=== PATIENT | male | born 1955 | race Caucasian/White ===

== ENCOUNTER → 2020-12-22 | Outpatient (CLI) | payer MEDICARE, OTHER ==
[2006-01-01 10:38] VITALS: PULSE 70; TEMP 98.2
[~2020-12-22] MED LIST: ASPI325T6 PO; ASPIRIN 81M81 MG/TA2 PO; BETAPACE 120MG120 MG PO; CELLCEPT 250MG250 MG PO; COLESTID 1GM1 G PO; COMPLETE MULTI1 TAB PO; COUMADIN 5MG5 MG/TAB PO; DULCOLAX STOOL100 MG PO; FERROUS SU325 MG/TAB PO; FOLIC ACID 11 MG/TA1 PO; KLOR-CON SPRIN10 MEQ PO; LOPRESSOR 225 MG/TAB PO; LUNESTA3 MG PO; MOBIC15 MG PO; NORCO 325 MG-51 TAB PO; PREDNISONE 5MG5 MG PO; PREDNISONE10 MG PO; PRILOSEC 20MG20 MG PO; PRISTIQ100 MG PO; PROTONIX 40MG T40 MG PO; RITALIN 20M20 MG/TAB PO; SYNTHROID0.05 MG/TA PO; SYNTHROID0.075 MG/T PO; THIAMINE 1100 MG/TAB PO; TYLENOL 500MG500 MG PO; ULTRAM 50MG TAB50 MG PO; ZOFRAN ODT4 MG PO
== END ==
LOC: COL.RAD 07:51
DX: M25.551 Pain in right hip (principal)
CPT/HCPCS: J3301; Q9967

== ENCOUNTER 2021-01-05 07:25 | Day surgery (SDC) | payer MEDICARE, OTHER ==
[~2021-01-05] VITALS: Ht 195.6 cm; Wt 119.8 kg
[2021-01-05] MEDS ORDERED: KLOR-CON SPRIN10 MEQ PO (07:47)
[2021-01-05] MEDS ORDERED: PRILOSEC 20MG20 MG PO (07:47)
[2021-01-05] MEDS ORDERED: RITALIN 20M20 MG/TAB PO (07:48)
[2021-01-05] MEDS ORDERED: PRISTIQ100 MG PO (07:49)
[2021-01-05] MEDS ORDERED: LUNESTA3 MG PO (07:50)
[2021-01-05] MEDS ORDERED: PREDNISONE 5MG5 MG PO (07:51)
[2021-01-05] MEDS ORDERED: COUMADIN 5MG5 MG/TAB PO (07:54)
[2021-01-05] MEDS ORDERED: LOPRESSOR 225 MG/TAB PO (07:55)
[2021-01-05] MEDS ORDERED: COLESTID 1GM1 G PO (08:06)
[2021-01-05 08:25] VITALS: BP 124/91; PULSE 94; TEMP 97.2
[2021-01-05 09:50] VITALS: BP 119/80; PULSE 73
--- NOTE | 2021-01-05 09:50 | NUR ---
Returns to bay 2 per cart and transfers from cart to recliner with one person assist. Resting in recliner and IV fluids continue to infuse. Denies difficulty swallowing or nausea. Given orange juice and jello. Spouse in room. Call light in reach.
--- NOTE | 2021-01-05 09:55 | NUR ---
Dr. Nails in the room and talks with patient. All questions answered. Tolerating snack.
[2021-01-05 10:05] VITALS: BP 128/89; PULSE 68
--- NOTE | 2021-01-05 10:05 | NUR ---
States that he is ready to go home. Denies any pain or nausea.
--- NOTE | 2021-01-05 10:13 | NUR ---
IV discontinued and site is free of redness or swelling. Patient dresses self.
--- NOTE | 2021-01-05 10:21 | NUR ---
Dismissal instructions given and patient voices understanding of these. Provided office number for any questions or concerns.
--- NOTE | 2021-01-05 10:25 | NUR ---
Patient dismissed to home driven by spouse and taken to the front door per wheelchair and assisted into vehicle by this RN with dismissal instructions in hand.
== END 2021-01-05 10:25 | disposition home or self-care (01) ==
LOC: SDCO 07:25
DX: K29.50 Unspecified chronic gastritis without bleeding (principal); D12.3 Benign neoplasm of transverse colon; D50.0 Iron deficiency anemia secondary to blood loss (chronic); K57.30 Diverticulosis of large intestine without perforation or abscess without bleeding; R19.5 Other fecal abnormalities; M47.817 Spondylosis without myelopathy or radiculopathy, lumbosacral region; M19.90 Unspecified osteoarthritis, unspecified site; G89.29 Other chronic pain; R19.7 Diarrhea, unspecified; K90.9 Intestinal malabsorption, unspecified; I82.409 Acute embolism and thrombosis of unspecified deep veins of unspecified lower extremity; I48.91 Unspecified atrial fibrillation; I10 Essential (primary) hypertension; G47.33 Obstructive sleep apnea (adult) (pediatric); K21.9 Gastro-esophageal reflux disease without esophagitis; E66.01 Morbid (severe) obesity due to excess calories; E03.9 Hypothyroidism, unspecified; F41.9 Anxiety disorder, unspecified; F32.9 Major depressive disorder, single episode, unspecified; Z20.822 Contact with and (suspected) exposure to COVID-19; Z98.84 Bariatric surgery status; Z79.890 Hormone replacement therapy; Z79.899 Other long term (current) drug therapy; Z99.89 Dependence on other enabling machines and devices; Z79.01 Long term (current) use of anticoagulants
CPT/HCPCS: J7120

== ENCOUNTER → 2021-02-22 | Outpatient (CLI) | payer MEDICARE, OTHER ==
[2006-01-01 10:38] VITALS: TEMP 98.2
== END ==
LOC: COL.RAD 14:22
DX: M43.16 Spondylolisthesis, lumbar region (principal)
CPT/HCPCS: J3301

== ENCOUNTER 2021-05-04 23:19 | Inpatient (IN) | payer MEDICARE, OTHER ==
[~2021-05-04] VITALS: Ht 193 cm; Wt 118.4 kg
[~2021-05-04 23:19] MED LIST changes: -ASPI325T6 PO; -ASPIRIN 81M81 MG/TA2 PO; -BETAPACE 120MG120 MG PO; -CELLCEPT 250MG250 MG PO; -COMPLETE MULTI1 TAB PO; -DULCOLAX STOOL100 MG PO; -FERROUS SU325 MG/TAB PO; -FOLIC ACID 11 MG/TA1 PO; -MOBIC15 MG PO; -NORCO 325 MG-51 TAB PO; -PREDNISONE10 MG PO; -PROTONIX 40MG T40 MG PO; -SYNTHROID0.05 MG/TA PO; -SYNTHROID0.075 MG/T PO; -THIAMINE 1100 MG/TAB PO; -TYLENOL 500MG500 MG PO; -ULTRAM 50MG TAB50 MG PO; -ZOFRAN ODT4 MG PO
[2021-05-04 23:52] LABS: BASO % 0.6 % (0.0-2.0); EOS # 0.3 K/mm3 (0.0-0.7); EOS % 4.1 % (0-4.0); GRAN # 4.2 K/mm3 (1.4-6.5); GRAN % 58.9 % (42.2-75.2); HEMATOCRIT 32.3 % (42.0-52.0); HEMOGLOBIN 10.5 g/dl (13.5-18.0); LYMPH # 1.7 K/mm3 (1.2-3.4); LYMPH % 24.3 % (20.0-51.0); MEAN CELL VOLUME 96 fl (80.0-100.0); MEAN CORPUSCULAR HEMOGLOBIN 31 pg (27.0-31.0); MEAN CORPUSCULAR HGB CONC 33 g/dl (33.0-37.0); MEAN PLATELET VOLUME 8.2 fl (7.4-10.4); MONO # 0.8 K/mm3 (0.1-0.6); MONO % 11.4 % (1.7-9.3); PLATELET COUNT 199 K/mm3 (130-400); RED BLOOD COUNT 3.38 M/mm3 (4.20-5.60)
[2021-05-05 00:02] LABS: PARTIAL THROMBOPLASTIN TIME 25.7 SECONDS (26.0-37.0)
[2021-05-05 00:08] LABS: CALCIUM 8.2 mg/dL (8.4-10.2); CREATININE, serum 0.88 mg/dL (0.72-1.25); POTASSIUM 3.7 mmol/L (3.5-4.5)
[2021-05-05] MEDS ORDERED: ASPI325T6 PO (00:38)
[2021-05-05] MEDS ORDERED: MOBIC15 MG PO (00:39)
[2021-05-05] MEDS ORDERED: DULCOLAX STOOL100 MG PO (00:39)
[2021-05-05] MEDS ORDERED: SYNTHROID0.05 MG/TA PO (00:40)
[2021-05-05] MEDS ORDERED: NORCO 325 MG-51 TAB PO (00:40)
[2021-05-05] MEDS ORDERED: ZOFRAN ODT4 MG PO (00:40)
[2021-05-05] MEDS ORDERED: SYNTHROID0.075 MG/T PO (02:47)
[2021-05-05 03:03] VITALS: BP 127/73; PULSE 78; TEMP 98.4
[2021-05-05 06:49] LABS: BASO % 0.5 % (0.0-2.0); EOS # 0.2 K/mm3 (0.0-0.7); EOS % 2.9 % (0-4.0); GRAN # 5.3 K/mm3 (1.4-6.5); GRAN % 69.7 % (42.2-75.2); HEMOGLOBIN 10.3 g/dl (13.5-18.0); LYMPH % 13.3 % (20.0-51.0); MEAN CELL VOLUME 99 fl (80.0-100.0); MEAN CORPUSCULAR HEMOGLOBIN 32 pg (27.0-31.0); MEAN CORPUSCULAR HGB CONC 32 g/dl (33.0-37.0); MEAN PLATELET VOLUME 8.5 fl (7.4-10.4); MONO % 12.7 % (1.7-9.3); PLATELET COUNT 207 K/mm3 (130-400); RED BLOOD COUNT 3.24 M/mm3 (4.20-5.60); REDCELL DISTRIBUTION WIDTH-CV 16.3 % (11.5-14.5)
[2021-05-05 06:50] LABS: HEMATOCRIT 32.1 % (42.0-52.0)
[2021-05-05 07:01] LABS: CREATININE, serum 0.81 mg/dL (0.72-1.25); POTASSIUM 3.8 mmol/L (3.5-4.5)
--- NOTE | 2021-05-05 08:07 | NUR ---
patient is in bed, call light within reach, hearing aides and glasses on at this time. patient rates pain 8/10 PRN given by Primary Nurse Jacky. patient is currently NPO. immobile and on bedrest r/t right hip fx.
[2021-05-05 09:35] VITALS: BP 128/69; PULSE 84; TEMP 98.1
--- NOTE | 2021-05-05 09:55 | NUR ---
SW met with the patient to discuss discharge plan. The patient lives in [place] with his , Grace (ph#[phone]). He reports independence with ADLs and has a cane. He states that he had a knee replacement not too long ago and that he has been receiving outpatient PT at [facility]. The patient's PCP is Dr. Keagan Kern and he receives his medications from [facility]. He reports no difficulties obtaining his meds. The patient does not have a DPOA-HC in EMR, but he states that he does have one completed and that it designates his . He reports that his has a copy of the document. The patient has a femur fracture. Per Ortho, possible surgery on Sunday. SW discussed post-acute rehab upon discharge. The patient reports that he would prefer to return home and resume outpatient PT at [facility]. He states that if he cannot return straight home, he would only prefer [facility]. SW consulted IPR Director, Renea. The patient has a history of alcohol use and drinks 1-2 drinks a day. SW addressed this with the patient. The patient reports no concerns about his drinking and is not interested in any treatment. SW to continue to follow. *Discharge plan: home with outpatient PT vs IPR*
--- NOTE | 2021-05-05 11:58 | NUR ---
METOPROLOL GIVEN PER ORDERS. PT REFUSING HOSPITAL MEDS AFTER TALKING WITH PT HE TOOK METOPOLOL.
[2021-05-05] MEDS ORDERED: CELLCEPT 250MG250 MG PO (12:25)
[2021-05-05] MEDS ORDERED: RITALIN 20M20 MG/TAB PO (12:27)
[2021-05-05 12:40] VITALS: BP 147/87; PULSE 102; TEMP 98.1
[2021-05-05] MEDS ORDERED: PREDNISONE 5MG5 MG PO (12:51)
--- NOTE | 2021-05-05 13:08 | NUR ---
First visit from the grain sacker. No needs right now.
[2021-05-05 15:45] VITALS: BP 121/77; PULSE 125; TEMP 98.3
[2021-05-05 20:04] VITALS: BP 123/63; PULSE 97; TEMP 98.3
--- NOTE | 2021-05-05 21:00 | NUR ---
PT RESTING IN BED. SEE MAR FOR PAIN MEDS GIVEN. CPAP AT HS SET UP AND READY.
[2021-05-06] VITALS (11 sets, daily range): BP systolic 104–156; BP diastolic 54–93; PULSE 70–95; TEMP 97.6–98.3
--- NOTE | 2021-05-06 | NUR ---
NPO AT THIS TIME.
--- NOTE | 2021-05-06 06:13 | NUR ---
PT RESTING WITH CPAP ON THROUGHOUT THE NIGHT. NO DISTRESS.
[2021-05-06 06:19] LABS: BASO % 0.4 % (0.0-2.0); EOS # 0.3 K/mm3 (0.0-0.7); EOS % 3.9 % (0-4.0); GRAN # 4.9 K/mm3 (1.4-6.5); GRAN % 65.9 % (42.2-75.2); LYMPH # 1.2 K/mm3 (1.2-3.4); LYMPH % 15.9 % (20.0-51.0); MEAN CELL VOLUME 96 fl (80.0-100.0); MEAN CORPUSCULAR HGB CONC 33 g/dl (33.0-37.0); MEAN PLATELET VOLUME 8.8 fl (7.4-10.4); MONO % 13.2 % (1.7-9.3); PLATELET COUNT 196 K/mm3 (130-400); REDCELL DISTRIBUTION WIDTH-CV 15.8 % (11.5-14.5)
[2021-05-06 06:27] LABS: HEMATOCRIT 29.6 % (42.0-52.0); HEMOGLOBIN 9.9 g/dl (13.5-18.0); MEAN CORPUSCULAR HEMOGLOBIN 32 pg (27.0-31.0)
[2021-05-06 06:45] LABS: CALCIUM 8.3 mg/dL (8.4-10.2); CREATININE, serum 0.76 mg/dL (0.72-1.25); MAGNESIUM 1.8 mg/dL (1.6-2.6)
--- NOTE | 2021-05-06 07:48 | NUR ---
PATIENT REMAINS ON BEDREST AND NPO STATUS UNTIL SURGERY. PATIENT IS COOPERATIVE WITH CARES. NO PAIN AT THIS TIME.
--- NOTE | 2021-05-06 08:15 | NUR ---
PT IS ALERT AND ORIENTED THIS AM. PT REMAINS ON TELE AND BEDREST STATUS. PT IS NPO FOR SURGERY TODAY. PT REPORTS SOME PAIN AND MEDICATION WAS GIVEN. SHIFT ASSESSMENT COMPLETE AND MORNING MEDICATIONS GIVEN.
--- NOTE | 2021-05-06 13:55 | NUR ---
The patient is to tentatively have surgery today. If the patient is wanting or needing to pursue post-acute rehab upon discharge, Reena with IPR, reports that the soonest they would be able to take the patient would be on Sunday. SW to continue to monitor. *Discharge plan: home with and outpatient PT vs IPR. Will await therapy's recs after surgery*
--- NOTE | 2021-05-06 15:09 | NUR ---
PT OFF THE FLOOR FOR SURGERY
--- NOTE | 2021-05-06 17:32 | NUR ---
PATIENT IS IN SURGERY AND OFF OF MONITOR.
--- NOTE | 2021-05-06 20:24 | NUR ---
PT RETURNED FROM PACU PER BED. DENIES PAIN N/V. AWAKE AND ALERT. ABDUCTION WEDGE IN PLACE. SENSATION AND MOVEMENT IN TOES.
--- NOTE | 2021-05-06 21:19 | NUR ---
SEE MAR FOR PAIN MED GIVEN.
--- NOTE | 2021-05-06 21:50 | NUR ---
PT RESTING IN BED WATCHING BASKETBALL GAME ON PHONE. NO EVIDENCE OF PAIN.
--- NOTE | 2021-05-06 23:29 | NUR ---
PT RESTING WITH CPAP IN PLACE. NO DISTRESS. VSS.
[2021-05-07 01:05] LABS: HEMATOCRIT 23.4 % (42.0-52.0)
[2021-05-07 01:06] LABS: HEMOGLOBIN 7.7 g/dl (13.5-18.0)
--- NOTE | 2021-05-07 01:23 | NUR ---
REPORTED HBG 7.7 TO YANICK MARQUES.
[2021-05-07 04:13] VITALS: BP 100/59; PULSE 78; TEMP 98.5
[2021-05-07 07:09] LABS: BASO % 0.3 % (0.0-2.0); EOS # 0.1 K/mm3 (0.0-0.7); EOS % 1.4 % (0-4.0); GRAN # 6.5 K/mm3 (1.4-6.5); GRAN % 71.8 % (42.2-75.2); LYMPH # 1.2 K/mm3 (1.2-3.4); MEAN CELL VOLUME 99 fl (80.0-100.0); MEAN CORPUSCULAR HGB CONC 33 g/dl (33.0-37.0); MONO # 1.1 K/mm3 (0.1-0.6); MONO % 12.6 % (1.7-9.3); PLATELET COUNT 184 K/mm3 (130-400); RED BLOOD COUNT 2.45 M/mm3 (4.20-5.60); REDCELL DISTRIBUTION WIDTH-CV 15.3 % (11.5-14.5)
[2021-05-07 07:21] LABS: CALCIUM 7.9 mg/dL (8.4-10.2); CREATININE, serum 0.94 mg/dL (0.72-1.25); POTASSIUM 3.8 mmol/L (3.5-4.5)
[2021-05-07 07:30] LABS: HEMATOCRIT 24.3 % (42.0-52.0); MEAN CORPUSCULAR HEMOGLOBIN 33 pg (27.0-31.0)
[2021-05-07 08:09] VITALS: BP 109/60; PULSE 78; TEMP 98
--- NOTE | 2021-05-07 10:29 | NUR ---
PT WORKED WITH THERAPY THIS AM. SPOKE WITH SYSTEM SUPPORT TECHNICIAN ON REFERALS FOR PLACEMENT. PAIN CONTROLLED WITH PO MEDS. IV TORDOL ALSO EFFECTIVE. DRESSING TO RIGHT LEG CDI WITH 50 %WB.
[2021-05-07 11:41] VITALS: BP 135/114; PULSE 79; TEMP 98.5
[2021-05-07 16:31] VITALS: BP 114/60; PULSE 87; TEMP 98.5
[2021-05-07 20:15] VITALS: BP 168/81; PULSE 79; TEMP 98.6
--- NOTE | 2021-05-07 20:16 | NUR ---
ASSISTED UP TO BSC. NO BM. PASSISG GAS EALIER TODAY. VOMITED X2. ABD SOFT BS X4 QUAD. SEE MAR FOR ZOFRAN GIVEN.
--- NOTE | 2021-05-07 22:31 | NUR ---
INT NEEDLE TO RT ARM INFILTRATED.
[2021-05-08 00:39] VITALS: BP 108/60; PULSE 77; TEMP 98.5
[2021-05-08 04:10] VITALS: BP 95/47; PULSE 75; TEMP 99.4
[2021-05-08 06:59] LABS: HEMATOCRIT 21.2 % (42.0-52.0); HEMOGLOBIN 7.1 g/dl (13.5-18.0)
[2021-05-08 08:04] VITALS: BP 103/45; PULSE 74; TEMP 98.3
--- NOTE | 2021-05-08 10:10 | NUR ---
PT RESTING IN BED THIS AM. PT ATE BREAKFAST AND NOW WORKING WITH PT. PLAN ON TRANSFER TO [facility] FOR INC[facility]LES LATER TODAY OR TOMORROW. DRESSING TO RIGHT FEMUR CDI. PAIN WELL CONTROLLED WITH PO PAIN NEDS.
[2021-05-08 12:00] VITALS: BP 106/55; PULSE 76; TEMP 98.1
--- NOTE | 2021-05-08 13:48 | NUR ---
Pt was accepted into [facility]
[2021-05-08] MEDS ORDERED: FERROUS SU325 MG/TAB PO (13:56)
[2021-05-08] MEDS ORDERED: ULTRAM 50MG TAB50 MG PO (13:57)
[2021-05-08] MEDS ORDERED: BETAPACE 120MG120 MG PO (13:57)
[2021-05-08] MEDS ORDERED: TYLENOL 500MG500 MG PO (13:57)
[2021-05-08] MEDS ORDERED: PROTONIX 40MG T40 MG PO (13:58)
[2021-05-08] MEDS ORDERED: FOLIC ACID 11 MG/TA1 PO (13:58)
[2021-05-08] MEDS ORDERED: PREDNISONE10 MG PO (13:58)
[2021-05-08] MEDS ORDERED: COMPLETE MULTI1 TAB PO (13:58)
[2021-05-08] MEDS ORDERED: THIAMINE 1100 MG/TAB PO (13:58)
--- NOTE | 2021-05-08 15:23 | NUR ---
PT ACCEPTED TO [facility] FOR REHAB.
--- NOTE | 2021-05-08 16:32 | NUR ---
TRANSFER TO [facility] RM 336.
--- NOTE | 2021-05-08 16:35 | NUR ---
DRESSING CHANGE COMPLETE, AQUACELS PLACED OVER INCISON CDI WITH SVETA INTACT.
== END 2021-05-08 16:00 | DRG 467 ==
LOC: COL.ER 23:19 → SURG 05-05 00:25
PROVIDERS: Emergency Medicine; Orthopaedic Surgery Sports Medicine; Student in an Organized Health Care Education/Training Program; ADMIT Internal Medicine
PROC: 0QS604Z Reposition Right Upper Femur with Internal Fixation Device, Open Approach (ICD-10-PCS; 2021-05-06)
PROC: 0SRR0JZ Replacement of Right Hip Joint, Femoral Surface with Synthetic Substitute, Open Approach (ICD-10-PCS; principal; 2021-05-06 15:00)
PROC: 0SPR0JZ Removal of Synthetic Substitute from Right Hip Joint, Femoral Surface, Open Approach (ICD-10-PCS; 2021-05-06 15:00)
DX: S72.21XA Displaced subtrochanteric fracture of right femur, initial encounter for closed fracture (principal); M97.01XA Periprosthetic fracture around internal prosthetic right hip joint, initial encounter; D62 Acute posthemorrhagic anemia; I10 Essential (primary) hypertension; I48.91 Unspecified atrial fibrillation; F10.129 Alcohol abuse with intoxication, unspecified; G47.33 Obstructive sleep apnea (adult) (pediatric); E03.9 Hypothyroidism, unspecified; G47.00 Insomnia, unspecified; Y90.7 Blood alcohol level of 200-239 mg/100 ml; Z96.651 Presence of right artificial knee joint; Z96.641 Presence of right artificial hip joint; Z96.612 Presence of left artificial shoulder joint; Z96.611 Presence of right artificial shoulder joint; W01.0XXA Fall on same level from slipping, tripping and stumbling without subsequent striking against object, initial encounter; Y93.89 Activity, other specified; Y92.008 Other place in unspecified non-institutional (private) residence as the place of occurrence of the external cause; Z79.82 Long term (current) use of aspirin; Z79.52 Long term (current) use of systemic steroids; Z23 Encounter for immunization
CPT/HCPCS: 99223-AI; 99232-AI; 99233-AI; 99239; A9284; C1776; J0690; J1170; J1885; J2250; J2270; J2370; J2405; J2704; J3010; J7030; J7120; J7512; L1830; L1846

== ENCOUNTER 2021-05-08 13:45 | Inpatient (IN) | payer MEDICARE, OTHER ==
[~2021-05-08] VITALS: Ht 195.6 cm; Wt 120.7 kg
[~2021-05-08 13:45] MED LIST changes: +ASPI325T6 PO; +CELLCEPT 250MG250 MG PO; +DULCOLAX STOOL100 MG PO; +MOBIC15 MG PO; +NORCO 325 MG-51 TAB PO; +SYNTHROID0.05 MG/TA PO; +SYNTHROID0.075 MG/T PO; +ZOFRAN ODT4 MG PO
[2021-05-08] MEDS ORDERED: FERROUS SU325 MG/TAB PO (13:56)
[2021-05-08] MEDS ORDERED: TYLENOL 500MG500 MG PO (13:57)
[2021-05-08] MEDS ORDERED: ULTRAM 50MG TAB50 MG PO (13:57)
[2021-05-08] MEDS ORDERED: BETAPACE 120MG120 MG PO (13:57)
[2021-05-08] MEDS ORDERED: PROTONIX 40MG T40 MG PO (13:58)
[2021-05-08] MEDS ORDERED: FOLIC ACID 11 MG/TA1 PO (13:58)
[2021-05-08] MEDS ORDERED: COMPLETE MULTI1 TAB PO (13:58)
[2021-05-08] MEDS ORDERED: THIAMINE 1100 MG/TAB PO (13:58)
[2021-05-08] MEDS ORDERED: PREDNISONE10 MG PO (13:58)
[2021-05-08 18:15] VITALS: BP 97/44; PULSE 57; TEMP 98.1
--- NOTE | 2021-05-08 20:27 | NUR ---
ASSISTED AMB IN [place] WITH WALKER. 50%WB RLE. DOROTEO WELL. NO PAIN AT THIS TIME.
[2021-05-09] VITALS (8 sets, daily range): BP systolic 101–125; BP diastolic 57–68; PULSE 71–82; TEMP 97.9–98.5
[2021-05-09 06:45] LABS: HEMATOCRIT 19.3 % (42.0-52.0); HEMOGLOBIN 6.4 g/dl (13.5-18.0)
--- NOTE | 2021-05-09 16:24 | NUR ---
SW met with the patient to complete intake, as the patient is new to [facility]. The patient lives in [place] with his , Grace (ph#[phone]). He reports independence with ADLs and has a cane. He reports that he will need a walker upon discharge and would like to get one ordered through insurance. The patient's PCP is Dr. Keagan Kern and he receives his medications from [facility]. He reports no difficulties obtaining his meds. The patient does not have a DPOA-HC in EMR, but he states that he does have one completed and that he designated his . The patient reports that therapy is going well so far. SW to continue to follow.
--- NOTE | 2021-05-09 19:00 | NUR ---
RECEIVED CHANGE OF SHIFT REPORT FROM DAY SHIFT NURSE.
[2021-05-10 05:37] VITALS: BP 111/61; PULSE 72; TEMP 98
[2021-05-10 07:11] LABS: HEMATOCRIT 21.6 % (42.0-52.0); HEMOGLOBIN 7.2 g/dl (13.5-18.0)
--- NOTE | 2021-05-10 07:15 | NUR ---
CHANGE OF SHIFT REPORT GIVEN TO DAY SHIFT NURSE, JOELLEN CASTILLO.
--- NOTE | 2021-05-10 14:03 | NUR ---
Several visit attempts; Talent Buyer left prayer card that let patient know that spiritual care is available at our hospital and Talent Buyer's name and number.
[2021-05-10 16:57] VITALS: BP 127/72; PULSE 72; TEMP 98.1
--- NOTE | 2021-05-10 18:26 | NUR ---
PT DENIES ANY NEEDS AT THIS TIME DRESSING TO RIGHT HIP CHANGED SITE CLEANED WITH SALINE AQUACELL APPLIED
--- NOTE | 2021-05-10 19:01 | NUR ---
RECEIVED CHANGE OF SHIFT REPORT FROM DAY SHIFT NURSE. PATIENT UP IN CHAIR WITH VISITOR PRESENT IN ROOM DURING REPORT. CALL LIGHT WITHIN REACH.
--- NOTE | 2021-05-11 01:15 | NUR ---
PATIENT SLEEPING, DOES NOT WAKE WHEN DOOR TO ROOM IS OPENED BY NURSING DURING ROUNDS. BREATHING NONLABORED AND EVEN. CPAP ON. CALL LIGHT WITHIN REACH.
[2021-05-11 05:35] VITALS: BP 124/69; PULSE 77; TEMP 98.6
--- NOTE | 2021-05-11 07:12 | NUR ---
Patient is sleeping in bed. Call light and bedside table are within reach. Will continue to monitor patient throughout shift.
--- NOTE | 2021-05-11 07:33 | NUR ---
CHANGE OF SHIFT REPORT GIVEN TO DAY SHIFT NURSE, VANESSA CASTILLO.
--- NOTE | 2021-05-11 15:57 | NUR ---
GLENN met with the patient to present and review the [facility] Team Conference Note. The team has set a discharge date for this Sunday, 05/13, and recommend a walker and home health PT/OT. The patient is in agreement to the plan and with getting the FWW from [facility]. GLENN provided the patient's with Medicare.[employer]'s list of home health agencies that serve [place]. The patient would like some time to look over the list. SW to follow up with the patient tomorrow on preference.
[2021-05-11 17:57] VITALS: BP 122/54; PULSE 54; TEMP 98.4
--- NOTE | 2021-05-11 19:50 | NUR ---
PT RESTING IN RECLINER. MOD I IN ROOM. DECLINED WALK IN HALLS TONIGHT. NO NEEDS AT THIS TIME.
[2021-05-12 05:06] VITALS: BP 102/64; PULSE 71; TEMP 98.2
--- NOTE | 2021-05-12 06:50 | NUR ---
Report received from JONATHAN Lagos. Patient is sleeping in bed. Call light and bedside table are within reach. Will continue to monitor patient throughout shift.
--- NOTE | 2021-05-12 09:36 | NUR ---
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 offered God's blessings for continued healing for Myles.
--- NOTE | 2021-05-12 11:02 | NUR ---
GLENN faxed and emailed the FWW order to Sheree at [facility].
--- NOTE | 2021-05-12 14:08 | NUR ---
Admission QIM scores were reviewed by the team. Code of 4 chosen for oral hygiene was determined by team discussion to be the most usual performance before interventions for this patient during the assessment period. Code of 4 chosen for toilet hygiene was determined by team discussion to be the most usual performance before interventions for this patient during the assessment period. Code of 3 chosen for lower body dressing was determined by team discussion to be the most usual performance before interventions for this patient during the assessment period. Code of 4 chosen for rolling left to right was determined by team discussion to be the most usual performance before interventions for this patient during the assessment period. Code of 3 for sit to lying was determined by team discussion to be the most usual performance before interventions for this patient during the assessment period. Code of 4 was chosen for lying to sitting determined by team discussion to be the most usual performance before interventions for this patient during the assessment period. Code of 4 chosen for sit to stand was determined by team discussion to be the most usual performance before interventions for this patient during the assessment period. Code of 4 chosen for chair to bed transfer was determined by team discussion to be the most usual performance before interventions for this patient during the assessment period.
[2021-05-12] MEDS ORDERED: FERROUS SU325 MG/TAB PO (15:20)
[2021-05-12] MEDS ORDERED: BETAPACE 120MG120 MG PO (15:22)
[2021-05-12] MEDS ORDERED: FOLIC ACID 11 MG/TA1 PO (15:27)
[2021-05-12] MEDS ORDERED: COMPLETE MULTI1 TAB PO (15:27)
[2021-05-12] MEDS ORDERED: THIAMINE 1100 MG/TAB PO (15:27)
--- NOTE | 2021-05-12 15:50 | NUR ---
GLENN met with the patient to follow up on preference for home health agency. The patient reports that after talking to his , he would prefer to do outpatient PT. He reports that he already has outpatient PT set up at [facility] and his first appointment is on Sunday. GLENN notified ST. OT is not recommending continued outpatient OT upon discharge. The outpatient PT was approved.
[2021-05-12 16:06] LABS: HEMOGLOBIN 8.8 g/dl (13.5-18.0)
[2021-05-12] MEDS ORDERED: PREDNISONE10 MG PO (16:27)
[2021-05-12 18:04] VITALS: BP 109/66; PULSE 85; TEMP 98
--- NOTE | 2021-05-12 19:59 | NUR ---
SITTING IN RECLINER. WATCHING SPORTS. NO NEEDS AT THIS TIME. SMALL AMT OLD DRAINAGE ON AQUACEL RICHARD.
--- NOTE | 2021-05-13 00:05 | NUR ---
PT HAD AMBIEN EARLIER. HAS CPAP ON AT THIS TIME. RESTING QUIETLY.
[2021-05-13 04:42] VITALS: BP 103/64; PULSE 73; TEMP 98.2
--- NOTE | 2021-05-13 07:17 | NUR ---
REPORT RECIEVED. PT RESTING IN BED. NO SIGNS OR SYMPTOMS OF DISTRESS. NO COMPLAINTS OF PAIN OR NAUSEA. CALL LIGHT WITHIN REACH
[2021-05-13 07:47] LABS: HEMATOCRIT 23.9 % (42.0-52.0); HEMOGLOBIN 7.9 g/dl (13.5-18.0)
[2021-05-13] MEDS ORDERED: ULTRAM 50MG TAB50 MG PO (08:21)
[2021-05-13] MEDS ORDERED: ASPIRIN 81M81 MG/TA2 PO (08:21)
--- NOTE | 2021-05-13 09:23 | NUR ---
PT ASSESSED. CURRENTLY IN RECLINER WITH FACE COVERED WITH PILLOW. NO SIGNS OF DISTRESS. NO COMPLAINTS OF PAIN OR DYSPNEA. CALL LIGHT WITHIN REACH
--- NOTE | 2021-05-13 10:12 | NUR ---
GLENN contacted Sheree at [facility] to follow up on the walker. Sheree reports that they will be delivering the FWW to the patient's room before noon today. The patient is to discharge today by home with his today, 05/13, with outpatient PT at [facility]. GLENN met with the patient and presented and read the IM form outloud to him. The patient verblized understanding and signed the form. He declined a copy. No additional needs at this time.
--- NOTE | 2021-05-13 12:48 | NUR ---
PT DISCHARGED. ARRIVED TO TRANSPORT PT HOME. DISCHARGE PACKET GIVEN AND DOCUMENTS SIGNED. ALL QUESTIONS ANSWERED.
--- NOTE | 2021-05-13 14:46 | NUR ---
Discharge QIM scores were reviewed by the team. Code of 6 chosen for toilet transfers was determined by team discussion to be the most usual performance for this patient during the assessment period. Code of 6 chosen for showering determined by team discussion to be the most usual performance for this patient during the assessment period. Code of 4 chosen for footwear determined by team discussion to be the most usual performance for this patient during the assessment period. Code of 6 chosen for sit to stand transfers was determined by team discussion to be the most usual performance for this patient during the assessment period. Code of 6 chosen for chair to bed transfer on/taking off footwear was determined by team discussion to be the most usual performance for this patient during the assessment period. Code of 6 chosen for car transfer on side of bed was determined by team discussion to be the most usual performance for this patient during the assessment period. Code of 6 for walking 10 feet was determined by team discussion to be the most usual performance for this patient during the assessment period. Code of 6 for walking 50 feet was determined by team discussion to be the most usual performance for this patient during the assessment period. Code of 6 chosen for walking 150 feet was determined by team discussion to be the most usual performance for this patient during the assessment period. Code of 6 chosen for walking 10 feet on uneven surfaces was determined by team discussion to be the most usual performance for this patient during the assessment period.
== END 2021-05-13 12:49 | disposition home or self-care (01) | DRG 560 ==
PROVIDERS: Physician Assistant; ADMIT Internal Medicine
DX: S72.301D Unspecified fracture of shaft of right femur, subsequent encounter for closed fracture with routine healing (principal); D62 Acute posthemorrhagic anemia; E27.40 Unspecified adrenocortical insufficiency; M97.01XD Periprosthetic fracture around internal prosthetic right hip joint, subsequent encounter; I48.91 Unspecified atrial fibrillation; G47.33 Obstructive sleep apnea (adult) (pediatric); I10 Essential (primary) hypertension; E03.9 Hypothyroidism, unspecified; F32.A Depression, unspecified; F10.229 Alcohol dependence with intoxication, unspecified; G47.00 Insomnia, unspecified; R26.89 Other abnormalities of gait and mobility; Z73.6 Limitation of activities due to disability; Z98.84 Bariatric surgery status; Z79.899 Other long term (current) drug therapy; Y90.7 Blood alcohol level of 200-239 mg/100 ml; Y92.009 Unspecified place in unspecified non-institutional (private) residence as the place of occurrence of the external cause; W01.0XXD Fall on same level from slipping, tripping and stumbling without subsequent striking against object, subsequent encounter; Z79.82 Long term (current) use of aspirin; Z79.891 Long term (current) use of opiate analgesic; Z79.52 Long term (current) use of systemic steroids; Z96.651 Presence of right artificial knee joint; Z96.641 Presence of right artificial hip joint; Z96.612 Presence of left artificial shoulder joint; Z96.611 Presence of right artificial shoulder joint; Z88.8 Allergy status to other drugs, medicaments and biological substances; Z88.0 Allergy status to penicillin
CPT/HCPCS: 99222-AI; 99232-AI; 99239; J7512; P9016

== ENCOUNTER → 2021-07-22 | Outpatient (CLI) | payer MEDICARE, OTHER ==
[~2021-07-22] MED LIST changes: +ASPIRIN 81M81 MG/TA2 PO; +BETAPACE 120MG120 MG PO; +COMPLETE MULTI1 TAB PO; +FERROUS SU325 MG/TAB PO; +FOLIC ACID 11 MG/TA1 PO; +PREDNISONE10 MG PO; +PROTONIX 40MG T40 MG PO; +THIAMINE 1100 MG/TAB PO; +TYLENOL 500MG500 MG PO; +ULTRAM 50MG TAB50 MG PO
== END ==
LOC: COL.RAD 09:21
DX: Z01.812 Encounter for preprocedural laboratory examination (principal); M48.02 Spinal stenosis, cervical region; M43.12 Spondylolisthesis, cervical region; M54.12 Radiculopathy, cervical region
CPT/HCPCS: Q9967

== ENCOUNTER → 2021-08-22 | Outpatient (CLI) | payer MEDICARE, OTHER | LOC: COL.RAD 10:12 | DX: M47.26 Other spondylosis with radiculopathy, lumbar region (principal); M47.27 Other spondylosis with radiculopathy, lumbosacral region; M51.16 Intervertebral disc disorders with radiculopathy, lumbar region; M51.17 Intervertebral disc disorders with radiculopathy, lumbosacral region; M48.07 Spinal stenosis, lumbosacral region; Z98.890 Other specified postprocedural states | CPT/HCPCS: A9575 ==

== ENCOUNTER → 2021-09-09 | Outpatient (CLI) | payer MEDICARE, OTHER | LOC: COL.RAD 10:55 | DX: M97.01XD Periprosthetic fracture around internal prosthetic right hip joint, subsequent encounter (principal); T81.31XA Disruption of external operation (surgical) wound, not elsewhere classified, initial encounter; Z96.641 Presence of right artificial hip joint ==

== ENCOUNTER 2022-01-30 13:38 | Emergency (ER) | payer MEDICARE, OTHER ==
[~2022-01-30] VITALS: Ht 195.6 cm; Wt 111.4 kg
[~2022-01-30 13:38] MED LIST changes: +BACTRIM DS 8001 TAB PO; +PERCOCET 325 MG1 TA2 PO
[2022-01-30 14:00] VITALS: TEMP 97.7
[2022-01-30 14:27] LABS: COLLECTION METHOD CLEAN CATCH
[2022-01-30 14:29] LABS: BASO % 0.4 % (0.0-2.0); EOS # 0.3 K/mm3 (0.0-0.7); EOS % 6.2 % (0.0-4.0); GRAN # 3.3 K/mm3 (1.4-6.5); GRAN % 64.7 % (42.2-75.2); HEMATOCRIT 38.3 % (42.0-52.0); HEMOGLOBIN 12.2 g/dl (13.5-18.0); LYMPH # 0.8 K/mm3 (1.2-3.4); LYMPH % 14.6 % (20.0-51.0); MEAN CELL VOLUME 88 fl (80.0-100.0); MEAN CORPUSCULAR HEMOGLOBIN 28 pg (27-31); MEAN CORPUSCULAR HGB CONC 32 g/dl (33.0-37.0); MEAN PLATELET VOLUME 8.6 fl (7.4-10.4); MONO # 0.7 K/mm3 (0.1-0.6); MONO % 13.3 % (1.7-9.3); PLATELET COUNT 163 K/mm3 (130-400); RED BLOOD COUNT 4.34 M/mm3 (4.20-5.60); REDCELL DISTRIBUTION WIDTH-CV 15.7 % (11.5-14.5)
[2022-01-30] MEDS ORDERED: LOPRESSOR 550 MG/TAB PO (14:41)
[2022-01-30] MEDS ORDERED: RIFADIN300 MG (14:42)
[2022-01-30] MEDS ORDERED: CIPRO750 MG PO (14:42)
[2022-01-30 14:43] LABS: ALBUMIN 3.4 gm/dL (3.4-4.8); BILIRUBIN,TOTAL 0.3 mg/dL (0.2-1.2); CALCIUM 8.6 mg/dL (8.4-10.2); CREATININE, serum 0.9 mg/dL (0.72-1.25); POTASSIUM 3.4 mmol/L (3.5-4.5); TOTAL PROTEIN 5.8 gm/dL (6.2-8.1)
[2022-01-30] MEDS ORDERED: PRILOTC (14:44)
[2022-01-30] MEDS ORDERED: NORCO 325 MG-51 TAB PO (14:44)
[2022-01-30 14:49] LABS: PH 6 (5-8); URINE APPEARANCE Clear (CLEAR/HAZY); URINE BLOOD Negative (NEGATIVE); URINE COLOR Yellow (YELLOW); URINE GLUCOSE Negative (NEGATIVE); URINE KETONE Negative (NEGATIVE); URINE NITRATE Negative (NEGATIVE); URINE PROTEIN(semi-quant) Negative (NEGATIVE); URINE UROBILINOGEN Negative (NEGATIVE)
[2022-01-30 14:51] LABS: SQUAMOUS EPITHELIAL None Seen /hpf (0-10); URINE BACTERIA None Seen /hpf (NONE SEEN); URINE RBC 0-2 /hpf (0-2)
[2022-01-30] MEDS ORDERED: VALTREX1 GM PO (15:01)
[2022-01-30 15:06] VITALS: BP 123/75; PULSE 77
[2022-01-30] MEDS ORDERED: NEURONTIN100 MG/CAP PO (15:06)
== END 2022-01-30 15:24 | disposition home or self-care (01) ==
LOC: COL.ER 13:38
PROVIDERS: Emergency Medicine
DX: B02.9 Zoster without complications (principal); M54.50 Low back pain, unspecified
CPT/HCPCS: J2270; J2405; J7030

== ENCOUNTER → 2022-08-24 | Outpatient (CLI) | payer MEDICARE, OTHER ==
[~2022-08-24] MED LIST changes: +CIPRO750 MG PO; +LOPRESSOR 550 MG/TAB PO; +NEURONTIN100 MG/CAP PO; +PRILOTC; +RIFADIN300 MG; +VALTREX1 GM PO
== END ==
LOC: COL.RAD 11:24
DX: M75.122 Complete rotator cuff tear or rupture of left shoulder, not specified as traumatic (principal); Z96.612 Presence of left artificial shoulder joint

== ENCOUNTER → 2022-09-21 | Outpatient (CLI) | payer MEDICARE, OTHER | LOC: COL.RAD 07:30 | DX: M47.27 Other spondylosis with radiculopathy, lumbosacral region (principal); M48.07 Spinal stenosis, lumbosacral region; M51.17 Intervertebral disc disorders with radiculopathy, lumbosacral region ==

== ENCOUNTER 2023-09-06 17:49 | Emergency (ER) | payer MEDICARE, OTHER ==
[~2023-09-06] VITALS: Ht 195.6 cm; Wt 116.8 kg
[2023-09-06 17:58] VITALS: TEMP 98
[2023-09-06 18:22] LABS: HEMOGLOBIN 12.3 g/dl (13.5-18.0); MEAN CELL VOLUME 99 fl (80.0-100.0); MEAN CORPUSCULAR HEMOGLOBIN 33 pg (27-31); MEAN CORPUSCULAR HGB CONC 34 g/dl (33.0-37.0); MEAN PLATELET VOLUME 8.7 fl (7.4-10.4); PLATELET COUNT 140 K/mm3 (130-400); RED BLOOD COUNT 3.68 M/mm3 (4.20-5.60); REDCELL DISTRIBUTION WIDTH-CV 14.6 % (11.5-14.5)
[2023-09-06 18:44] LABS: ALBUMIN 3.2 gm/dL (3.4-4.8); BILIRUBIN,TOTAL 0.7 mg/dL (0.2-1.2); CALCIUM 8.7 mg/dL (8.4-10.2); CREATININE, serum 0.9 mg/dL (0.72-1.25); HEMATOCRIT 36.4 % (42.0-52.0); POTASSIUM 3.8 mmol/L (3.5-4.5)
[2023-09-06 19:17] LABS: BAND 1 % (0-10); LYMPHOCYTE 16 % (20.0-51.0); NEUTROPHILS 75 % (42.0-75.2)
[2023-09-06 20:51] VITALS: BP 120/82; PULSE 78
[2023-09-07 16:15] LABS: PATHOLOGY DIFF REVIEW OK
== END 2023-09-06 20:51 | disposition home or self-care (01) ==
LOC: COL.ER 17:49
PROVIDERS: Family Medicine
DX: H49.22 Sixth [abducent] nerve palsy, left eye (principal); M25.421 Effusion, right elbow; I48.91 Unspecified atrial fibrillation; Z79.01 Long term (current) use of anticoagulants

== ENCOUNTER 2023-12-22 21:25 | Inpatient (IN) | payer MEDICARE, OTHER ==
[~2023-12-22] VITALS: Ht 195.6 cm; Wt 111.4 kg
[2023-12-22] MEDS ORDERED: AMBIEN 10MG10 MG PO (21:42)
[2023-12-22] MEDS ORDERED: FLOMAX 0.40.4 MG/CAP PO (21:43)
[2023-12-22] MEDS ORDERED: TAMBOCOR50 MG PO (21:44)
[2023-12-22] MEDS ORDERED: CARDIZEM CD 12120 MG PO (21:44)
[2023-12-22] MEDS ORDERED: PLAVIX 75MG TAB75 MG PO (21:45)
[2023-12-22] MEDS ORDERED: RITALIN 20M20 MG/TAB PO (21:46)
[2023-12-22] MEDS ORDERED: COLACE 100100 MG/CAP PO (21:57)
[2023-12-22] MEDS ORDERED: SYNTHROID0.075 MG/T PO (21:58)
[2023-12-22] MEDS ORDERED: MILLIPRED5 MG PO (22:00)
[2023-12-22 22:01] LABS: BASO % 0.4 % (0.0-2.0); EOS % 0.6 % (0.0-4.0); GRAN # 5.1 K/mm3 (1.4-6.5); GRAN % 71.1 % (42.2-75.2); HEMOGLOBIN 11.7 g/dl (13.5-18.0); LYMPH # 1.2 K/mm3 (1.2-3.4); LYMPH % 16.2 % (20.0-51.0); MEAN CELL VOLUME 97 fl (80.0-100.0); MEAN CORPUSCULAR HEMOGLOBIN 32 pg (27-31); MEAN CORPUSCULAR HGB CONC 33 g/dl (33.0-37.0); MEAN PLATELET VOLUME 8.6 fl (7.4-10.4); MONO # 0.8 K/mm3 (0.1-0.6); MONO % 10.7 % (1.7-9.3); PLATELET COUNT 195 K/mm3 (130-400); RED BLOOD COUNT 3.68 M/mm3 (4.20-5.60); REDCELL DISTRIBUTION WIDTH-CV 12.8 % (11.5-14.5)
[2023-12-22 22:03] LABS: HEMATOCRIT 35.7 % (42.0-52.0)
[2023-12-22 22:05] LABS: PARTIAL THROMBOPLASTIN TIME 24.1 SECONDS (26.0-37.0)
[2023-12-22 22:09] LABS: ALANINE AMINOTRANSFERASE 14 U/L (0-55); ALBUMIN 3.8 g/dL (3.4-4.8); ALKALINE PHOSPHATASE 94 U/L (40-150); ANION GAP 11 mmol/L (7-16); AST,SGOT 15 U/L (5-34); BILIRUBIN,TOTAL 1.2 mg/dL (0.2-1.2); BLOOD UREA NITROGEN 20 mg/dL (8-26); CALCIUM 8.7 mg/dL (8.4-10.2); CHLORIDE 106 mEq/L (98-107); CREATININE, serum 0.91 mg/dL (0.72-1.25); GLUCOSE 102 mg/dL (70-99); POTASSIUM 3.9 mEq/L (3.5-4.5); SODIUM 140 mEq/L (136-145); TOTAL PROTEIN 6.5 g/dl (6.2-8.1)
[2023-12-22 22:16] LABS: TROPONIN-I < 0.010 ng/mL (0.00-0.033)
[2023-12-22] MEDS ORDERED: LORazepam 2 MG/ML 1 ML VIAL IV ONE (23:15)
[2023-12-22] MEDS ORDERED: Iohexol 350 - 100 ML VIAL IV ONE (23:39)
[2023-12-22] MEDS ORDERED: NS IV SCH (23:39)
[2023-12-23] VITALS (9 sets, daily range): BP systolic 126–164; BP diastolic 78–116; PULSE 70–79; TEMP 98–99
[2023-12-23] MEDS ORDERED: Ondansetron 4 MG/2 ML VIAL IV ONE (00:30)
[2023-12-23 00:40] LABS: COLLECTION METHOD CLEAN CATCH
[2023-12-23 00:55] LABS: PH 8.5 (5.0-8.5); URINE APPEARANCE CLEAR (CLEAR/HAZY); URINE BLOOD 1+ (NEGATIVE); URINE COLOR YELLOW (YELLOW); URINE GLUCOSE NEGATIVE (NEGATIVE); URINE KETONE TRACE (NEGATIVE); URINE NITRATE NEGATIVE (NEGATIVE); URINE PROTEIN(semi-quant) NEGATIVE (NEGATIVE); URINE UROBILINOGEN 0.2 E.U/dL (0.2-1.0)
[2023-12-23 01:13] LABS: ALCOHOL(ethanol),MEDICAL < 10 mg/dL (0-10)
[2023-12-23] MEDS ORDERED: Docusate Sodium 100 MG CAP PO PRN ×2 (01:30→01:45)
[2023-12-23 01:41] LABS: TRICYCLIC ANTIDEPRESS URINE NEGATIVE (NEGATIVE)
[2023-12-23] MEDS ORDERED: Polyethylene Glycol 3350 17 GM PDS PO PRN (01:45)
[2023-12-23] MEDS ORDERED: traZODone 50 MG TAB PO PRN (01:45)
[2023-12-23] MEDS ORDERED: cloNIDine 0.1 MG TAB PO PRN (01:45)
[2023-12-23] MEDS ORDERED: Gabapentin 300 MG CAP PO SCH (01:45)
[2023-12-23] MEDS ORDERED: Acetaminophen 325 MG TAB PO PRN (01:45)
[2023-12-23] MEDS ORDERED: hydrOXYzine HCl 25 MG TAB PO PRN (01:45)
[2023-12-23] MEDS ORDERED: Ondansetron 4 MG/2 ML VIAL IV PRN (01:45)
[2023-12-23] MEDS ORDERED: Dicyclomine 10 MG CAP PO PRN (01:45)
[2023-12-23] MEDS ORDERED: LR 1,000 ML IV SCH (01:45)
--- NOTE | 2023-12-23 01:45 | NUR ---
Report recieved from JONATHAN San. All questions answered at this time.
--- NOTE | 2023-12-23 02:10 | NUR ---
Patient arrived to room 344 at this time with personal belongings. Patient transfered over to bed with minimal assisstance scooting from one bed to the other. Patient is A&Ox4 but speech is slurred at times. Patient is unable to keep eyes open very long but will open them to speech. Assessment complete. Pupils are constricted. Patient has mulitple wounds, see skin assessment note. Completed med rec to best ability. IV in right AC flushes easily without complications. Call light and personal items in reach. Bed in low position and bed alarm on.
[2023-12-23 02:50] LABS: CHOLESTEROL RISK RATIO 3.2
--- NOTE | 2023-12-23 05:39 | NUR ---
Skin Assessment Left great toe: 2 blisters- one open and one intact Left lat. ankle: wound- covered with blue foam and skin tear (from wound clinic) Left ojeda: skin tear- dressing Right medial ojeda: skin tear- dressing Right posterior ankle: skin tear- dressing Right mid calf: skin tear- dressing Rigth hip: scar- intact, hip replacement Lower back: 2 scars- intact, back surgrey Generalized: bruising, scattered States he goes to the wound clinic and sees Abida.
[2023-12-23] MEDS ORDERED: Metoprolol Tartrate 50 MG TAB PO SCH (09:00)
[2023-12-23] MEDS ORDERED: Multivitamin TAB PO SCH (09:00)
[2023-12-23] MEDS ORDERED: Clopidogrel 75 MG TAB PO SCH (09:00)
[2023-12-23] MEDS ORDERED: predniSONE 10 MG TAB PO SCH (09:00)
[2023-12-23] MEDS ORDERED: dilTIAZem CD (24-HR) 120 MG CAP PO SCH (09:00)
--- NOTE | 2023-12-23 10:30 | NUR ---
PT RESTING IN BED, PRETTY DROWSY, BUT WAKES TO ANSWER QUESTIONS AND TAKE MEDS. PT IS ORIENTEDX4. RATES PAIN 6/10 IN THE RIGHT LEG. PT HAS GENERALIZED BRUSIING ALL OVER BODY. PT STATES THAT HES HAD MULTIPLE FALLS RECENTLY. SCORING LOW ON COWS ASSESSEMENT.
--- NOTE | 2023-12-23 10:37 | NUR ---
SW presented to complete intake with patient and was provided by nurse that it would be beneficial to contact family to obtain information. SW called spouse/DPOA/HC Grace Mccormack [phone]. Spouse provides jeremiah patient primarily utilizes and electric wheel chair and does not walk very well, does not utilize home health services at this time. PCP is Dr. Hillman, and pharmacy utilized is [facility]. Spouse provides plan is for patient to return home upon discharge, but open to any assistance needed when transfer time comes. SW will continue to follow. Discharge plan: home
--- NOTE | 2023-12-23 14:04 | NUR ---
PT STATED "I FEEL LIKE I AM STARTING TO GO CRAZY LIKE I DID LAST NIGHT". GAVE ATARAX
[2023-12-23] MEDS ORDERED: Atorvastatin 40 MG TAB PO SCH (21:00)
--- NOTE | 2023-12-23 23:09 | NUR ---
PT ALERT AND OIRENTED, VSS. RESTING IN BED COMFORTABLY, ABLE TO USE THE URINAL INDEPENDANTLY. REQUESTING MED FOR ANXIETY SO THAT " HE STAYS ON TOP OF IT". ANIETY MED GIVEN AND PT IS RESTING IN BED. DENIES FURTHER NEED. CALL LIGHT WITHIN REACH, BED ALARM ENGAGED.
[2023-12-24] VITALS (13 sets, daily range): BP systolic 100–125; BP diastolic 63–80; PULSE 72–94; TEMP 97.6–99.7
[2023-12-24 05:35] LABS: BASO % 0.4 % (0.0-2.0); EOS # 0.1 K/mm3 (0.0-0.7); EOS % 0.9 % (0.0-4.0); GRAN # 4.8 K/mm3 (1.4-6.5); GRAN % 70.8 % (42.2-75.2); HEMOGLOBIN 11.2 g/dl (13.5-18.0); LYMPH # 0.9 K/mm3 (1.2-3.4); LYMPH % 13.7 % (20.0-51.0); MEAN CELL VOLUME 98 fl (80.0-100.0); MEAN CORPUSCULAR HEMOGLOBIN 33 pg (27-31); MEAN CORPUSCULAR HGB CONC 33 g/dl (33.0-37.0); MEAN PLATELET VOLUME 8.3 fl (7.4-10.4); MONO # 0.9 K/mm3 (0.1-0.6); MONO % 13.5 % (1.7-9.3); PLATELET COUNT 165 K/mm3 (130-400); RED BLOOD COUNT 3.41 M/mm3 (4.20-5.60)
[2023-12-24 05:41] LABS: HEMATOCRIT 33.5 % (42.0-52.0)
[2023-12-24 06:00] LABS: CALCIUM 8.3 mg/dL (8.4-10.2); CREATININE, serum 0.82 mg/dL (0.72-1.25); POTASSIUM 3.8 mEq/L (3.5-4.5)
--- NOTE | 2023-12-24 06:45 | NUR ---
Pt laying in bed. Responsive to voice after multiple attempts. Pt denies needs at this time. Call light in reach. Bed alarm on.
--- NOTE | 2023-12-24 08:14 | NUR ---
Pt laying in bed. A&Ox3. VSS. S1S2 on tele. Clear lungs on RA. ABD round, soft, non-tender with audible bowel sounds. Palpable pulses in all extremities with 5/5 strength. IV in R AC is patent with LR running at 75 cc/hr. Multiple skin issues: L Great Toe - x2 blisters - 1 open, 1 intact L 2nd Toe - x1 blister - intact L Lateral Ankle - ulcer - mepilex pad L anterior lower leg - skin tear - mepilex pad R anterior, medial lower leg - skin tear - mepilex pad R posterior ankle - skin tear - mepilex pad R posterior lower leg - skin tear - mepilex pad BLE - generalized ecchymosis R lower back/flank - ecchymosis LLQ - ecchymosis (large) R hip - scar from previous surgery Back - multiple scars due to spinal/back surgiers Bilateral heels - deep tissue injury Bilateral arms - ecchymosis Pt declines anxiety, nausea, vomitting, headache. No further needs. Call light in reach and bed alarm on.
--- NOTE | 2023-12-24 08:27 | NUR ---
Physical Therapy attempted to work with Pt. Unable to sit Pt at side of bed due to Pt becoming lightheaded and swaying back and forth. BPs as follows: Supine: 120/78 Sittin/51 PT elected to return at a different time to work with Pt.
--- NOTE | 2023-12-24 09:49 | NUR ---
Confirmed with Pt's son. Morphine pump is MRI safe. Pump will turn off automatically and will turn back on after procedure. Nothing needs to be done. No revisions since last MRI in April 2023.
[2023-12-24] MEDS ORDERED: Patient's Own Medication Item IT SCH (10:00)
[2023-12-24] MEDS ORDERED: KLOR-CON M2020 MEQ PO (10:15)
--- NOTE | 2023-12-24 10:55 | NUR ---
Pt off floor for MRI.
--- NOTE | 2023-12-24 11:33 | NUR ---
Pt returned from MRI. Requesting Tylenol for pain due to movement. Call light in reach and bed alarm on.
--- NOTE | 2023-12-24 19:27 | NUR ---
report received from remy mcgraw. pt resting in bed with eyes closed. pt responsive to voice. pt denies pain. fall precautions in place. call light in reach. all needs met at this time.
--- NOTE | 2023-12-24 22:16 | NUR ---
shift assessment complete, see documentation. pt tolerated hs meds well. pt denies pain. pt noted to have many skin issues. pt alert and oriented x3 during assessment. no confusion noted. fall precautions in place. call light in reach. all needs met at this time.
[2023-12-25] VITALS (12 sets, daily range): BP systolic 92–110; BP diastolic 60–78; PULSE 82–109; TEMP 98.1–99.3
--- NOTE | 2023-12-25 05:54 | NUR ---
pt slept on and off through the night. pt had very minimal confusion through the night. pt continues using urinal without issue. pt denies pain. ivf continue without issue. fall precautions in place. call light in reach.
[2023-12-25 06:51] LABS: BASO % 0.7 % (0.0-2.0); EOS # 0.1 K/mm3 (0.0-0.7); EOS % 2.5 % (0.0-4.0); GRAN # 3.2 K/mm3 (1.4-6.5); GRAN % 57.5 % (42.2-75.2); HEMOGLOBIN 11.5 g/dl (13.5-18.0); LYMPH # 1.3 K/mm3 (1.2-3.4); LYMPH % 23.7 % (20.0-51.0); MEAN CELL VOLUME 97 fl (80.0-100.0); MEAN CORPUSCULAR HEMOGLOBIN 32 pg (27-31); MEAN CORPUSCULAR HGB CONC 33 g/dl (33.0-37.0); MEAN PLATELET VOLUME 8.6 fl (7.4-10.4); MONO # 0.8 K/mm3 (0.1-0.6); MONO % 14.7 % (1.7-9.3); PLATELET COUNT 182 K/mm3 (130-400); RED BLOOD COUNT 3.55 M/mm3 (4.20-5.60); REDCELL DISTRIBUTION WIDTH-CV 12.9 % (11.5-14.5)
[2023-12-25 07:04] LABS: HEMATOCRIT 34.4 % (42.0-52.0)
[2023-12-25 07:05] LABS: CALCIUM 8.4 mg/dL (8.4-10.2); CREATININE, serum 0.86 mg/dL (0.72-1.25); POTASSIUM 3.8 mEq/L (3.5-4.5)
--- NOTE | 2023-12-25 07:05 | NUR ---
Pt sleeping in bed. Call light in reach. Bed alarm on.
--- NOTE | 2023-12-25 08:30 | NUR ---
Pt laying in bed. Son at bedside. A&Ox4. VSS. S1S2 on tele. Clear lungs on RA. ABD round, soft, non-tender with audible bowel sounds. Palpable pulses in all extremities. Pt was sleeping upon room entry, but easily aroused. IV in L wrist patent with LR at 75. Skin integrity as follows: Bilateral Arms - ecchymosis ABD LLQ - ecchymosis (large area) Lower Back - ecchymosis (Right side), 2 scars R Hip - scar BLE - generalized ecchymosis R Posterior Mid Lower Leg - skin tear - mepilex R anterior Lower Leg - skin tear - mepilex R ankle - skin tear, DTI - Aquacell Ag, heel mepilex L anterior lower leg - skin tear - Aquacell Ag, foam tape L lateral ankle - ulcer, DTI - Aquacell Ag. heel mepilex R knee - skin tear - Aquacell foam dressing L Great toe - x2 blisters (1 open, 1 intact) L second toe - x1 blister - intact L lateral upper arm - skin tear - steristrip No further needs at this time. Call light in reach and bed alarm on.
[2023-12-25] MEDS ORDERED: NS 1,000 ML IV SCH (09:45)
--- NOTE | 2023-12-25 11:03 | NUR ---
nephrology social worker reviewed PT evaluation which notes patient may benefit from home health services upon discharge. SW met with patient and discussed home health services, patient stated they were going to give him medication to increase his blood pressure then seen how he does after that. SW provided the Medicare.gov list of home health options and left her contact information. GLENN explained she will continue to follow along with patient's care and assist with discharge plan. Discharge plan: Home with home health
--- NOTE | 2023-12-25 11:09 | NUR ---
greenhouse worker left voicemail for Grace Mccormack to introduce herself and discuss discharge plan. SW will follow up.
--- NOTE | 2023-12-25 11:46 | NUR ---
Per GRACE Jameson. D/C COWS protocol.
--- NOTE | 2023-12-25 11:47 | NUR ---
D: Sleep Lab Technician stopped by room on rounds. A: Pt was resting and content. Pt is a member of the [employer] and has strong support system. Pt appreciated the visit. P: Sleep Lab Technician informed pt that if he needed anything to let his nurse know. Sleep Lab Technician will follow up as needed.
--- NOTE | 2023-12-25 12:47 | NUR ---
Called provider. Confirmed fluid order. Only 1 L NS at 250 cc/hr. Confirmed order with provider after notifying provider about Pt's BP: 90/60s. Will continue to monitor Pt's BP.
--- NOTE | 2023-12-25 15:24 | NUR ---
PCT reported BP: 80/50. Rechecked other arm. Remained in high 80s. Checked manual: 110/78. Will recommend to manager shift nurse to monitor manual BP. Pt shakes arm when machine pumps air into cuff and machine cannot read pressures accurately.
--- NOTE | 2023-12-25 16:08 | NUR ---
Report given to JONATHAN Whitfield. Pt transferred to Room 355 via bed. No further needs. Call light in reach.
--- NOTE | 2023-12-25 16:11 | NUR ---
Report received from JONATHAN Hart. Pt awake in bed with no complaints. Call light within reach and fall precautions in place.
[2023-12-25] MEDS ORDERED: Zolpidem 10 MG TAB PO SCH (23:06)
[2023-12-26] VITALS (10 sets, daily range): BP systolic 105–146; BP diastolic 64–91; PULSE 94–113; TEMP 97.6–98.7
--- NOTE | 2023-12-26 04:30 | NUR ---
PT ALERT AND ORIENTED X4 NOT CONFUSED. VSS, ORTHOSTATIC VITAL SIGNS STARTED YESTERDAY R/T HYPOTENSION. WAS ASKING AT BEDTIME FOR HIS AMBIEN, STATING "TELL THE DOCTOR TO COME TALK TO ME BECAUSE IM NO LONGER CONFUSED AND I WANT MY AMBIEN" PROVIDER NOTIFIED AND ONE TIME DOSE GIVEN. PT COMFORTABLE AT THIS TIME RESTING IN BED. PT HAS MULTIPLE BRUISING FROM PREVIOUS FALLS AT HOME AND ALSO HAS SEEN WOUND CARE SINCE THIS ADMISSION FOR MULTIPLE WOULDS FOUND AT ADMISSION. CALL LIGHT WITHIN REACH,BED ALARM ENGAGED.
--- NOTE | 2023-12-26 06:45 | NUR ---
awake resting in bed, bedside shift report received from Lico Dennis
[2023-12-26 08:04] LABS: BASO # 0.1 K/mm3 (0.0-0.2); BASO % 0.9 % (0.0-2.0); EOS # 0.2 K/mm3 (0.0-0.7); EOS % 3.6 % (0.0-4.0); GRAN # 3.3 K/mm3 (1.4-6.5); GRAN % 58.1 % (42.2-75.2); LYMPH # 1.3 K/mm3 (1.2-3.4); LYMPH % 23.5 % (20.0-51.0); MEAN CELL VOLUME 98 fl (80.0-100.0); MEAN CORPUSCULAR HEMOGLOBIN 32 pg (27-31); MEAN CORPUSCULAR HGB CONC 32 g/dl (33.0-37.0); MEAN PLATELET VOLUME 8.6 fl (7.4-10.4); MONO # 0.7 K/mm3 (0.1-0.6); MONO % 13.2 % (1.7-9.3); PLATELET COUNT 166 K/mm3 (130-400); RED BLOOD COUNT 3.46 M/mm3 (4.20-5.60); REDCELL DISTRIBUTION WIDTH-CV 12.8 % (11.5-14.5)
[2023-12-26 08:06] LABS: HEMATOCRIT 33.9 % (42.0-52.0)
[2023-12-26 08:37] LABS: CALCIUM 8.6 mg/dL (8.4-10.2); CREATININE, serum 0.86 mg/dL (0.72-1.25); POTASSIUM 3.5 mEq/L (3.5-4.5)
[2023-12-26] MEDS ORDERED: Metoprolol Tartrate 25 MG TAB PO SCH (09:00)
--- NOTE | 2023-12-26 09:30 | NUR ---
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
--- NOTE | 2023-12-26 10:14 | NUR ---
Dr Blackman and care team in to see patient
--- NOTE | 2023-12-26 11:45 | NUR ---
occupational therapy in to work with patietn and assisted him with cleaning up and getting ready for potential discharge
--- NOTE | 2023-12-26 12:28 | NUR ---
report given to JONATHAN Rankin
[2023-12-26] MEDS ORDERED: LIPITOR 40MG TA40 MG PO (13:45)
[2023-12-26] MEDS ORDERED: PROAMATINE 5MG T5 MG PO (13:45)
[2023-12-26] MEDS ORDERED: LOPRESSOR 225 MG/TAB PO (13:51)
--- NOTE | 2023-12-26 14:07 | NUR ---
SW witnessed patient being verbally upset with PT and RN related to wanting to go home. Patient yelling. SW met with patient after PT completed visit. Patient resting in dark room and stated "I'm not feelig very social right now." SW acknowledged patient's frustration and explained reason for follow up visit for discharge planning. Patient refusing HH services and stated "they fixed my blood pressure problem and I don't need it now." GLENN contacted Dr. Blackman to inform of patient's decision. Discharge plan: Home
--- NOTE | 2023-12-26 15:16 | NUR ---
Discharge paperwork reviewed with the patient. Patient verbalized an understanding to follow doctors orders. IV removed, tip intact. Gauze and coban applied. No further needs expressed. Nursing staff assisting with getting ready to go home. Call light within reach
--- NOTE | 2023-12-26 15:49 | NUR ---
Patient taken by wheelchair to awaiting vehicle. Personal belongings with the patient. No further needs expressed
== END 2023-12-26 15:49 | disposition home or self-care (01) | DRG 93 ==
LOC: COL.ER 21:25 → SURG 12-23 01:52 → MEDICAL 12-25 16:07
PROVIDERS: Emergency Medicine; ADMIT Internal Medicine
DX: R47.81 Slurred speech (principal); R45.1 Restlessness and agitation; I95.1 Orthostatic hypotension; I48.91 Unspecified atrial fibrillation; F32.A Depression, unspecified; F11.90 Opioid use, unspecified, uncomplicated; G47.00 Insomnia, unspecified; E03.9 Hypothyroidism, unspecified; N40.0 Benign prostatic hyperplasia without lower urinary tract symptoms
CPT/HCPCS: G0378; J1650; J2060; J2405; J7030; J7120; J7512; Q9967